=== PATIENT | female | born 1955 | race Caucasian/White ===

== ENCOUNTER 2019-04-15 20:00 | Emergency (ER) | payer OTHER ==
[~2019-04-15] VITALS: Ht 160 cm; Wt 81.6 kg
[2019-04-15 20:08] VITALS: Ht 160 cm; Wt 81.6 kg
[2019-04-15 22:04] LABS: BASOPHIL % 0.2 % (0-2); PLATELET COUNT 265 x10^3mcL (130-400); RED CELL DISTRIBUTION WIDTH 14.3 % (11.5-14.5)
[2019-04-15 22:14] LABS: CALCIUM 9.5 mg/dL (8.5-10.1); CARBON DIOXIDE 21.4 mmol/L (21-32); CHLORIDE SERUM 103 mmol/L (98-107); CREATININE SERUM 0.5 mg/dL (0.6-1.0); GFR1 > 60 mL/min; GLUCOSE SERUM 101 mg/dL (74-106); POTASSIUM SERUM 3.7 mmol/L (3.5-5.1); SODIUM SERUM 139 mmol/L (136-145)
[2019-04-15 22:26] LABS: ALBUMIN 3.6 g/dL (3.4-5.0); ALKALINE PHOSPHATASE 85 U/L (46-116); ALT/SGPT 31 U/L (14-59); AST/SGOT 16 U/L (15-37); BILIRUBIN TOTAL 0.22 mg/dL (0.20-1.00); TOTAL PROTEIN, SERUM 7.9 g/dL (6.4-8.2)
[2019-04-15 22:31] LABS: microscopic required? NO
[2019-04-15] MEDS ORDERED: ALPRAZOLAM0.25 MG PO (22:32)
[2019-04-15 22:33] LABS: C REACTIVE PROTEIN 4.1 mg/dL (<=0.9)
[2019-04-15] MEDS ORDERED: ESTRACE1 MG PO (22:33)
[2019-04-15] MEDS ORDERED: ZESTRIL40 MG PO (22:33)
[2019-04-15 22:34] LABS: FREE T4 1.01 ng/dL (0.76-1.46); FREE THYROXINE INDEX 2.7 ug/dL (1.4-4.5); T4(THYROXINE) 8.2 ug/dL (4.7-13.3)
[2019-04-15] MEDS ORDERED: SIMVASTATIN40 M1 PO (22:34)
[2019-04-15] MEDS ORDERED: MEDROXYPROGEST2.5 MG PO (22:34)
[2019-04-15] MEDS ORDERED: NOR10 PO (22:34)
[2019-04-15] MEDS ORDERED: ASPIRIN ADULT L81 M5 PO (22:35)
[2019-04-15 22:36] LABS: UA SPECIFIC GRAVITY <=1.005 (1.005-1.035); urine erythrocyte NEGATIVE (NEGATIVE)
[2019-04-15 22:43] LABS: ERYTHROCYTE SED RATE 33 mm/hr (0-30)
[2019-04-15 22:45] LABS: T3 TOTAL 1.27 ng/mL
[2019-04-15 22:59] LABS: CK-MB 1.3 ng/mL (0-3.6)
[2019-04-16 02:47] VITALS: BP 146/71
== END 2019-04-16 02:47 | disposition short-term general hospital (02) ==
LOC: ED 20:00
PROVIDERS: Specialist
DX: N61.1 Abscess of the breast and nipple (principal); I10 Essential (primary) hypertension; E78.00 Pure hypercholesterolemia, unspecified; G89.29 Other chronic pain; Z90.89 Acquired absence of other organs
CPT/HCPCS: 76641; 84439; J2060; J2270; J2543; J3010; J3370; J7030; J7050; Q0092